=== PATIENT | female | born 1970 | race African-American/Black ===

== ENCOUNTER 2018-10-15 01:34 | Emergency (ER) | payer SELFPAY ==
[~2018-10-15] VITALS: Ht 160 cm; Wt 61.2 kg
[2018-10-15 01:37] VITALS: BP 145/86
== END 2018-10-15 03:00 | disposition left against medical advice (07) ==
LOC: ER 01:53
DX: R51 Headache (principal); Z53.21 Procedure and treatment not carried out due to patient leaving prior to being seen by health care provider